=== PATIENT | female | born 1980 | race Caucasian/White ===

== ENCOUNTER 2017-02-01 16:22 | Emergency (ER) | payer MEDICAID ==
[~2017-02-01] VITALS: Ht 154.9 cm; Wt 64.0 kg
[2017-02-01 16:26] VITALS: Ht 154.9 cm; Wt 64.0 kg
--- NOTE | 2017-02-01 17:49 | ERD ---
ER Documentation Chief Complaint Date/Time DATE: 02/01/17 TIME: 17:48 Chief Complaint pt bib self with c/o back pain starting 3 days ago HPI 36-year-old female complains of lower back pain that started 3 days ago after work. She describes pain only when she she moves, achy and is localized to the lumbar area. She states that for her work she tends to lift a lot of heavy items. She denies any radicular symptoms, saddle anesthesia or loss of bowel bladder function. She denies trauma. She denies fevers or chills. ROS All systems reviewed and are negative except as per history of present illness. Medications Home Meds Active Scripts Cyclobenzaprine Hcl* (Cyclobenzaprine Hcl*) 5 Mg Tablet, 5 MG PO Q8H Y for PAIN , #15 TAB Prov:JAMES ZUNIGA PA-C 02/01/17 Ibuprofen* (Motrin*) 600 Mg Tab, 600 MG PO Q6, #30 TAB Prov:JAMES ZUNIGA PA-C 02/01/17 Allergies Allergies: Coded Allergies: No Known Allergy (Unverified , 02/01/17) PMhx/Soc Medical and Surgical Hx: pt denies Medical Hx Hx Alcohol Use: No Hx Substance Use: No Hx Tobacco Use: No Physical Exam Vitals Vital Signs Date Time Temp Pulse Resp B/P Pulse Ox O2 Delivery O2 Flow Rate FiO2 02/01/17 16:26 98.8 64 16 132/76 98 Physical Exam General: Well-developed, well-nourished. The patient appears in no acute distress. HEENT: Head is normocephalic, atraumatic. No scleral icterus. Neck: Supple. Nontender. Lungs: Clear to auscultation. Normal air movement. Heart: Regular rate and rhythm. S1 and S2 are normal. No murmurs, gallops, or rubs. Abdomen: Soft, nontender, nondistended. Bowel sounds are normoactive. Back: Atraumatic, +parpaspinal tenderness to the L3-L4 region, no midline tenderness, no crepitus, no rashes, strength is 5 out of 5 bilaterally to lower extremities. Extremities: No clubbing or cyanosis. Normal pulses. Moving extremities x 4. No weakness. Neurologic: Alert and oriented 3. No focal deficits. Skin: Normal turgor. No rash or lesions. Results 24 hrs Current Medications Medications (Trade) Dose Ordered Sig/Dariela Route PRN Reason Start Time Stop Time Status Last Admin Dose Admin Ibuprofen (Motrin) 600 mg ONCE ONCE PO 02/01/17 18:00 02/01/17 18:01 DC 02/01/17 18:02 DIAGNOSTIC IMAGING REPORT Patient: JIM RIDLEY : 1980 Age: 36 Sex: F MR #: [id number] DOS: 02/01/17 1746 Ordering MD: JAMES ZUNIGA PA-C Location: [facility] Room/Bed: PROCEDURE: XR Lumbar Spine. CLINICAL INDICATION: Low back pain. TECHNIQUE: Three views of the lumbar spine are available for review COMPARISON: None available FINDINGS: There is maintenance of normal lumbar lordosis. Alignment is intact. No acute fracture or dislocation is seen. The vertebral body heights are preserved. There are mild degenerative changes of lumbar spine, mainly at L5-S1. IMPRESSION: 1. No acute fracture or subluxation. 2. Mild discogenic disease mainly at L5-S1. RPTAT: HH .Frederick Cortez MD, Date Time Electronically viewed and signed by .Frederick Cortez MD, MD on 02/01/2017 19: 31 .N/ CC: JAMES ZUNIGA PA-C Procedures/MDM 36-year-old female comes with low back pain after lifting heavy items of the other day at work, patient examination does not show signs of neurovascular injury. X-ray lumbar spines are unremarkable. Patient's spine symptoms have stabilized while they have been evaluated in the department and are appropriate for outpatient work up. No evidence of cauda equina, cord compression, infiltrative, or infectious etiology. Departure Diagnosis: Primary Impression: Back pain Condition: Good JAMES ZUNIGA PA-C Feb 01, 2017 17:49
[2017-02-01] MEDS ORDERED: IBUPROFEN 600 MG TAB PO ONE (18:00)
--- NOTE | 2017-02-01 19:31 | RADRPT ---
PROCEDURE: XR Lumbar Spine. CLINICAL INDICATION: Low back pain. TECHNIQUE: Three views of the lumbar spine are available for review COMPARISON: None available FINDINGS: There is maintenance of normal lumbar lordosis. Alignment is intact. No acute fracture or disloca tion is seen. The vertebral body heights are preserved. There are mild degenerative changes of lumbar spine, mainl y at L5-S1. IMPRESSION: 1. No acute fracture or subluxation. 2. Mild discogenic disease mainly at L5-S1. RPTAT: HH .Frederick Cortez MD, Date Time Electronically viewed and signed by .Frederick Cortez MD, on 02/01/2017 19:31 .N/
[2017-02-01] MEDS ORDERED: IBUP-1542 PO (19:34)
[2017-02-01] MEDS ORDERED: CYCL5TAB PO (19:34)
== END 2017-02-01 19:40 | disposition home or self-care (01) ==
LOC: FTE 16:22
DX: M54.5 Low back pain (principal)
CPT/HCPCS: 72100; Z7502; Z7610